=== PATIENT | female | born 1960 ===

== ENCOUNTER 2017-07-10 09:02 | Emergency (ER) | payer OTHER ==
[2017-07-10 09:15] VITALS: BP 142/79
--- NOTE | 2017-07-10 09:35 | ED ---
Abdominal Pain/Female - HPI Summary HPI Summary: 57 yo WF c/o LLQ pain x 2 days associated with decreased appetite, denies f/c/n/ v/d/flank pain or UTI sx. - History of Current Complaint Chief Complaint: UCAbdominalPain Stated Complaint: ABD PAIN Time Seen by Provider: 07/10/17 09:15 Hx Obtained From: Patient Hx Last Menstrual Period: approx 8-9months ago ?: Yes Onset/Duration: Sudden Onset Timing: Constant Severity Currently: Moderate Pain Intensity: 6 Allergies/Adverse Reactions: Allergies Allergy/AdvReac Type Severity Reaction Status Date / Time No Known Allergies Allergy Verified 07/10/17 09:07 Home Medications: Home Medications Cholecalciferol TAB* [Vitamin D TAB*] 1 tab PO DAILY 07/10/17 [History Confirmed 07/10/17] Ibuprofen TAB* [Advil TAB*] 400 mg PO Q6HR PRN 07/10/17 [History Confirmed 07/10] PMH/Surg Hx/FS Hx/Imm Hx Previously Healthy: Yes Endocrine/Hematology History: Denies: Hx Diabetes, Hx Thyroid Disease Cardiovascular History: Denies: Hx Hypertension Respiratory History: Denies: Hx Asthma, Hx Chronic Obstructive Pulmonary Disease (COPD) GI History: Denies: Hx Ulcer - Surgical History Surgery Procedure, Year, and Place: csection Infectious Disease History: No Infectious Disease History: Reports: Traveled Outside the [place] in Last 30 Days - [place] Denies: Hx Clostridium Difficile, Hx Hepatitis, Hx Human Immunodeficiency Virus (HIV) - Social History Alcohol Use: Daily Alcohol Amount: 1-2 glasses wine Substance Use Type: Reports: None Smoking Status (MU): Never Smoked Tobacco Review of Systems Constitutional: Negative Eyes: Negative ENT: Negative Cardiovascular: Negative Respiratory: Negative Positive: Abdominal Pain Genitourinary: Negative Musculoskeletal: Negative Skin: Negative Neurological: Negative Psychological: Normal All Other Systems Reviewed And Are Negative: Yes Physical Exam Triage Information Reviewed: Yes Vital Signs On Initial Exam: Initial Vitals Temp Pulse Resp BP Pulse Ox 37.1 C 63 16 142/79 99 07/10/17 09:08 07/10/17 09:08 07/10/17 09:08 07/10/17 09:08 07/10/17 09:08 Vital Signs Reviewed: Yes Appearance: Positive: Pain Distress Skin: Positive: Warm Eyes: Positive: Normal ENT: Positive: Normal ENT inspection Neck: Positive: Supple Respiratory/Lung Sounds: Positive: Clear to Auscultation Cardiovascular: Positive: Normal, S1, S2 Abdomen Description: Positive: Soft, Other: - moderate LLQ tenderness. Negative : CVA Tenderness (R), Guarding - Neg rebound Musculoskeletal: Positive: Normal Neurological: Positive: Normal Psychiatric: Positive: Normal Diagnostics - Vital Signs Vital Signs Temp Pulse Resp BP Pulse Ox 07/10/17 09:08 37.1 C 63 16 142/79 99 - Laboratory Lab Results: Lab Results 07/10/17 Range/Units 09:22 POC Urine Color Dark yellow POC Urine Clarity Clear POC Urine pH 5.5 (5-9) POC Ur Specif [place] 1.025 (1.010-1.030) POC Urine Protein Trace A (Negative) POC Ur Glucose (UA) Negative (Negative) POC Urine Ketones Negative (Negative) POC Urine Blood Trace-intact A (Negative) POC Urine Nitrite Negative (Negative) POC Urine Bilirubin Negative (Negative) POC Urine Urobilinogen 0.2 (Negative) POC U Leukocyte Esteras Negative (Negative) Lab Statement: Any lab studies that have been ordered have been reviewed, and results considered in the medical decision making process. Abdominal Pain Fem Course/Dx - Course Course Of Treatment: UA unremarkable but clinically very impressive for acute diverticulitis- advised to got to ER for CT abd and further eval, no administrative tech here today - Diagnoses Provider Diagnoses: LLQ abdominal pain Discharge - Sign-Out/Discharge Documenting (check all that apply): Discharge/Admit/Transfer - Discharge Plan Condition: Stable Disposition: HOME Patient Education Materials: Abdominal Pain (ED) Referrals: Shakira Wright MD [Primary Care Provider] - Additional Instructions: please go to ER for CT scan to rule out diverticulitis - Billing Disposition and Condition Condition: STABLE Disposition: HOME
== END 2017-07-10 09:34 | disposition home or self-care (01) ==
LOC: UCEAST 09:02
DX: R10.32 Left lower quadrant pain (principal)
CPT/HCPCS: 81003; 99201; G0463

== ENCOUNTER 2017-07-10 09:49 | Emergency (ER) | payer OTHER ==
[2017-07-10] MEDS ORDERED: NS 0.9% 1000 ML* 2,000 ML IV ONE (10:32)
[2017-07-10 10:49] LABS: ABS Basophils 0 10^3/ul (0-0.2); ABS Eosinophils 0.3 10^3/ul (0-0.6); ABS Lymphocytes 1.7 10^3/ul (1.0-4.8); ABS Monocytes 0.4 10^3/ul (0-0.8); ABS Neutrophils 2.4 10^3/ul (1.5-7.7); ABS Nucleated RBC 0 10^3/ul; Eosinophil % 5.8 % (0-6); Hematocrit 43 % (35-47); Hemoglobin 14.1 g/dl (12.0-16.0); Lymphocyte % 34.8 % (25-47); Mean Corpuscular HGB Conc 33 g/dl (31-36); Mean Corpuscular Hemoglobin 32 pg (27-31); Mean Corpuscular Volume 98 fL (80-97); Mean Platelet Volume 7.5 um3 (7.4-10.4); Nucleated Red Blood Cells % 0; Platelet Count 243 10^3/ul (150-450); Red Blood Count 4.36 10^6/ul (4.0-5.4); Red Cell Distribution Width 12 % (10.5-15); White Blood Count 4.9 10^3/ul (3.5-10.8)
[2017-07-10 10:57] LABS: INR 0.88 (0.77-1.02)
[2017-07-10 11:09] LABS: EGFR Non-African American 94.6 (>60)
[2017-07-10] MEDS ORDERED: Iohexol 300* (CONTRAST) 10 ML SDV IV ONE (11:30)
[2017-07-10] MEDS ORDERED: Ketorolac INJ* 30 MG/ML 1 ML VIAL IV PUSH ONE (11:55)
[2017-07-10 12:19] VITALS: BP 168/75
[2017-07-10 12:23] LABS: Urine Appearance Clear; Urine Blood Negative (Negative); Urine Color Straw; Urine Ketones Negative (Negative); Urine Protein Negative (Negative); Urine Specific Gravity 1.005 (1.010-1.030); Urine Urobilinogen Negative (Negative)
--- NOTE | 2017-07-10 13:39 | RAD ---
INDICATION: Left lower quadrant abdominal pain. COMPARISON: There are no prior studies available for comparison. TECHNIQUE: A CT scan of the abdomen and pelvis was performed with intravenous and oral contrast following intravenous injection of 131 ml of Omnipaque 300 nonionic contrast. Contiguous axial sections were obtained from the lung bases through the symphysis pubis. Images were reconstructed in the coronal and sagittal planes. FINDINGS: There is mild dependent bilateral lower lobe subsegmental atelectasis. No pleural effusion is present. The liver and spleen are normal in size. The liver is decreased in attenuation consistent with fatty infiltration. No calcified gallstones are seen. The pancreas appears to be within normal limits. The kidneys and adrenal glands are normal in size. No hydronephrosis is seen. No significant focal renal abnormality is seen. The aorta is normal in caliber with mild calcific plaque present. No significant enlarged retroperitoneal lymph nodes are seen. The stomach, small and large bowel appear nondistended. The appendix is within normal limits. There is moderate sigmoid diverticulosis. Anterior to the proximal sigmoid colon there is a small oval-shaped area of fat signal intensity with a faint peripheral soft tissue density rim suggestive of epiploic appendagitis. No wall thickening is present within the sigmoid colon to suggest diverticulitis. The uterus is anteverted and normal in size. No free intraperitoneal air or fluid is seen. No significant focal osseous abnormality is seen. IMPRESSION: 1. FINDINGS MOST CONSISTENT WITH EPIPLOIC APPENDAGITIS ADJACENT TO THE PROXIMAL SIGMOID COLON. 2. HEPATIC STEATOSIS.
--- NOTE | 2017-07-10 23:53 | ED ---
Hayden Lucas Tecjoon, scribed for Lilly Montoya MD on 07/10/17 at 1046 . Abdominal Pain/Female - HPI Summary HPI Summary: This patient is a 57 year old female presenting to [facility], referred from [facility] with a chief complaint of LLQ abd pain since yesterday afternoon. Patient thought she just pulled a muscle, but when she woke up this morning, the pain was still present and had worsened. The pain does not radiate. The pain is rated 6/10 in severity. Symptoms aggravated by movement. Symptoms alleviated by nothing. This pain is new to the patient. 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 Pt has no hx of diverticulosis, has not had a colonoscopy. Patient denies nausea, vomiting, diarrhea, urinary problems, melena. The patient has no hx of kidney stones or hernias. The only medication she takes are Multivitamin and vitamin D whenever she remembers. Pt has Dr. Wright for her PCP and is generally healthy. - History of Current Complaint Chief Complaint: EDAbdPain Stated Complaint: ABD PAIN Time Seen by Provider: 07/10/17 10:05 Hx Obtained From: Patient, Medical Records - urgent care today Hx Last Menstrual Period: approx 8-9months ago, perimenopausal ?: No Onset/Duration: Lasting Days - 1, Still Present, Worse Since - this morning Timing: Constant Severity Initially: Moderate Severity Currently: Moderate Pain Intensity: 6 Pain Scale Used: 0-10 Numeric Location: Discrete At: LLQ Radiates: No Character: Dull Aggravating Factor(s): Movement Alleviating Factor(s): Nothing Associated Signs and Symptoms: Positive: Negative - nausea, vomiting, diarrhea, urinary problems, melena Allergies/Adverse Reactions: Allergies Allergy/AdvReac Type Severity Reaction Status Date / Time No Known Allergies Allergy Verified 07/10/17 10:04 Home Medications: Home Medications Calcium Carbonate [Calcium] 500 mg PO DAILY 07/10/17 [History Confirmed 07/10/17 ] Multivitamins/Minerals TAB* [Theragran/minerals TAB*] 1 tab PO DAILY 07/10/17 [ History Confirmed 07/10/17] PMH/Surg Hx/FS Hx/Imm Hx Previously Healthy: Yes Endocrine/Hematology History: Denies: Hx Diabetes, Hx Thyroid Disease Cardiovascular History: Denies: Hx Hypertension Respiratory History: Denies: Hx Asthma, Hx Chronic Obstructive Pulmonary Disease (COPD) GI History: Denies: Hx Hiatal Hernia, Hx Ulcer History: Denies: Hx Kidney Stones Opthamlomology History: Denies: Hx Legally Blind EENT History: Denies: Hx Deafness - Surgical History Surgery Procedure, Year, and Place: csection Infectious Disease History: No Infectious Disease History: Reports: Traveled Outside the [place] in Last 30 Days - was in [place] 2 weeks ago Denies: Hx Clostridium Difficile, Hx Hepatitis, Hx Human Immunodeficiency Virus (HIV) - Family History Known Family History: Positive: Hypertension, Diabetes, Other - esophageal CA, father - Social History Lives: With Family Alcohol Use: Daily Alcohol Amount: 1-2 glasses wine Hx Substance Use: No Substance Use Type: Reports: None Hx Tobacco Use: No Smoking Status (MU): Never Smoked Tobacco Review of Systems Negative: Fever Cardiovascular: Negative Respiratory: Negative Gastrointestinal: Negative - melena Positive: Abdominal Pain. Negative: Vomiting, Diarrhea, Nausea Genitourinary: Negative Positive: see HPI Skin: Negative Neurological: Negative Psychological: Normal All Other Systems Reviewed And Are Negative: Yes Physical Exam - Summary Physical Exam Summary: Appearance: well-appearing, moderate pain distress, Well-nourished Skin: Warm, color reflects adequate perfusion Head: Normal Head/Face inspection Eyes: Conjunctiva clear ENT: Normal inspection Neck: Supple, no nodes, no JVD. Respiratory: Lungs clear, Normal breath sounds, no respiratory distress Cardio: RRR, No murmur, pulses normal, brisk capillary refill Abdomen: Tenderness in LLQ, no masses, no guarding no rebound Bowel sounds: present Musculoskeletal: Strength Intact/ ROM intact. No calf tenderness. No edema. Psychological: Normal Neuro: Alert, muscle tone normal, no focal deficit Triage Information Reviewed: Yes Vital Signs On Initial Exam: Initial Vitals Temp Pulse Resp BP Pulse Ox 97.8 F 60 14 155/85 97 07/10/17 10:01 07/10/17 10:01 07/10/17 10:01 07/10/17 10:01 07/10/17 10:01 Vital Signs Reviewed: Yes Diagnostics - Vital Signs Vital Signs Temp Pulse Resp BP Pulse Ox 07/10/17 10:01 97.8 F 60 14 155/85 97 - Laboratory Result Diagrams: 07/10/17 10:34 05/05/18 10:34 Lab Statement: Any lab studies that have been ordered have been reviewed, and results considered in the medical decision making process. - CT CT Abd/Pel CT Interpretation: Positive (See Comments) - CT Abd/Pel reveals, per radiologist , IMPRESSION: 1. FINDINGS MOST CONSISTENT WITH EPIPLOIC APPENDAGITIS ADJACENT TO THE PROXIMAL SIGMOID COLON. 2. HEPATIC STEATOSIS. ED physician has reviewed this radiology report. CT Interpretation Completed By: Radiologist - EKG 1015 Cardiac Rate: NL EKG Rhythm: Sinus Rhythm - [address] Segment: Non-Specific Ectopy: None EKG Interpretation: normal aV CT and prolonged IV CT with LAFB, normal QTc, left axis -47 EKG Comparison: Other - no prior to compare Re-Evaluation - Re-Evaluation First Eval Re-Evaluation Time: 10:40 Change: Improved Second Eval Re-Evaluation Time: 11:25 Change: Improved Third Eval Re-Evaluation Time: 11:55 Change: Improved Fourth Eval Re-Evaluation Time: 12:51 Change: Improved Comment: Patient's pain is better and her headache is gone. Patient is on her way to CT. Fifth Eval Re-Evaluation Time: 14:35 Comment: Discussed the patient's imaging results and diagnosis: epiploic appendagitis, hepatic steatosis. Abdominal Pain Fem Course/Dx - Course Course Of Treatment: This patient is a 57 year old female presenting to [facility] with a chief complaint of LLQ abd pain since yesterday afternoon. Pain worsened this morning and the patient presented first to and was referred to the ED. The patient has no hx of kidney stones or hernias. The only medications she takes are Multivitamin and vitamin D whenever she remembers. An EKG, taken 1015 , reveals NSR (64 BPM), normal aV CT and prolonged IV CT with LAFB, normal QTc, left axis -47, nonspecific ST, no ectopy. CT Abd/Pel reveals, per radiologist, IMPRESSION: 1. FINDINGS MOST CONSISTENT WITH EPIPLOIC APPENDAGITIS ADJACENT TO THE PROXIMAL SIGMOID COLON. 2. HEPATIC STEATOSIS. ED physician has reviewed this radiology report. Bloodwork Obtained. Urinalysis Obtained. Test results with no significant abnormalities. In the ED course the patient was given IV fluids, Toradol, Iohexol. Pt medications reviewed this visit. high blood pressure noted. Patient will be discharged with a dx of epiploic appendagitis, hepatic steatosis and a perscription for ibuprofen. Patient is advised to follow up with Dr. Wright in 2 days. The patient is agreeable with this plan. - Diagnoses Differential Diagnosis: Positive: Constipation, Diverticulitis, Ovarian Cyst, Renal Colic, Urinary Tract Infection Provider Diagnoses: Elevated blood pressure reading without diagnosis of hypertension, Epiploic appendagitis, Hepatic steatosis, Left anterior fascicular block (LAFB) determined by electrocardiography Discharge - Sign-Out/Discharge Documenting (check all that apply): Discharge/Admit/Transfer - home - Discharge Plan Condition: Stable Disposition: HOME Prescriptions: Ibuprofen TAB* [Motrin TAB* 600 MG] 600 mg PO Q8H #20 tab Patient Education Materials: Abdominal Pain (ED) Referrals: Shakira Wright MD [Primary Care Provider] - 2 Days Additional Instructions: We gave you a copy of CT and lab results. Your diagnosis is epiploic appendigitis. The treatment is Ibuprofen as directed. Follow up with Dr. Wright if there is no improvement. RETURN TO THE ER FOR ANY NEW OR WORSENING SYMPTOMS - Billing Disposition and Condition Condition: STABLE Disposition: HOME The documentation as recorded by the Hayden smart Tecjoon accurately reflects the service I personally performed and the decisions made by , Lilly Montoya MD.
== END 2017-07-10 15:10 | disposition home or self-care (01) ==
LOC: ED 09:49
DX: K63.89 Other specified diseases of intestine (principal); K76.0 Fatty (change of) liver, not elsewhere classified; R03.0 Elevated blood-pressure reading, without diagnosis of hypertension
CPT/HCPCS: 36415; 74177; 80053; 81003; 82150; 82550; 83605; 83690; 83735; 84484; 85025; 85610; 85730; 86140; 93005; 96360; 96374; 96375; 99282; J1885; Q9967